=== PATIENT | male | born 2000 | race Caucasian/White ===

== ENCOUNTER → 2025-08-04 | Outpatient (CLI) | payer OTHER | LOC: M PLAIMG 13:10 | PROVIDERS: ATTEND Student in an Organized Health Care Education/Training Program | DX: M25.512 Pain in left shoulder (principal) ==

== ENCOUNTER 2025-08-20 17:13 | Emergency (ER) | payer OTHER ==
[~2025-08-20] VITALS: Ht 180.3 cm; Wt 84.3 kg
[2025-08-20 19:13] VITALS: TEMP 98.3
[2025-08-20] MEDS: NS (Normal Saline) 0.9% 1,000 ML IV ONE (19:55)
[2025-08-20] MEDS: KETOROLAC 30 MG/ML 1 ML VIAL IV ONE (21:05)
[2025-08-20] MEDS ORDERED: ONDA-282 PO (21:28)
[2025-08-20 21:31] VITALS: BP 126/75; O2SAT 97
== END 2025-08-20 21:41 | disposition home or self-care (01) ==
LOC: EDBD 17:13 → M ED 17:13
DX: G43.909 Migraine, unspecified, not intractable, without status migrainosus (principal)
CPT/HCPCS: 70450; 96361; 96374; 96375; 99284; J1885; J2765